=== PATIENT | male | born 1990 | race American Indian/Alaskan Native ===

== ENCOUNTER 2018-12-18 19:23 | Emergency (ER) | payer BC ==
[2018-12-18 19:31] VITALS: BP 123/58
--- NOTE | 2018-12-18 19:40 | Emergency Department Report ---
Blank Doc - Documentation Documentation: 28 y o male presents with pain to the roof of his mouth x 3 days no hx of dental work acc fionaal
== END 2018-12-18 22:17 | disposition left against medical advice (07) ==
LOC: ED 19:23
DX: K13.79 Other lesions of oral mucosa (principal); Z53.21 Procedure and treatment not carried out due to patient leaving prior to being seen by health care provider